=== PATIENT | female | born 1965 | race Caucasian/White ===

== ENCOUNTER 2024-09-04 08:07 | Day surgery (SDC) | payer OTHER ==
[~2024-09-04 08:07] MED LIST: LIDOCAINE 1% (10MG/ML) FOR IV START INTRADERMA PRN
[2024-09-04 08:32] VITALS: RESP 16; TEMP 97.1
[2024-09-04] MEDS: IV FLUID CONTINUATION 1,000 ML IV ONE (08:39)
[2024-09-04] MEDS: LACTATED RINGERS 1,000 ML IV SCH (08:40)
[2024-09-04] MEDS ORDERED: LIDOCAINE 1% INJ 10MG/ML (20 ML MDV) ONE (09:13)
[2024-09-04] MEDS ORDERED: PROPOFOL 10 MG/ML 20 ML VIAL IV ONE (09:13)
--- NOTE | 2024-09-04 09:28 | P.PCN ---
Date of Procedure: 09/04/24 Procedure(s) Performed: BRIEF HISTORY: Patient is a 50-year-old, pleasant, white female scheduled for an upper endoscopy as a part evaluation of longstanding history of GERD.. PROCEDURE PERFORMED: Esophagogastroduodenoscopy biopsy and dilation. PREOPERATIVE DIAGNOSIS: Longstanding history of GERD. IV sedation per anesthesia. PROCEDURE: After informed consent was obtained, the patient was brought into the endoscopy unit. IV sedation was administered by Anesthesia under continuous monitoring. Initially the Olympus GIF-140 video endoscope was inserted into the mouth. Esophagus intubated without any difficulty. It was gradually advanced into the stomach and duodenum and carefully examined. The bulb and the second part of the duodenum appeared normal. The scope at this time was withdrawn to the stomach, adequately insufflated with air, and upon careful examination, mucosa of the antrum, mild gastritis and biopsies were done from this area. Mucosa of the body, cardia and the fundus appeared normal. Moderate to large size hiatal hernia noted. The scope was then withdrawn into the esophagus. The GE junction was located at 32 cm from the incisors. Was a distal esophageal stricture identified and this was dilated using 12 to 15 mm TTS balloon in a sequential fashion for 60 seconds. There were erosions noted in the distal esophagus and multiple superficial mucosal rings in the mid esophagus biopsies were done from this area to rule out eosinophilic esophagitis. The rest of the esophagus appeared normal. The patient tolerated the procedure well. IMPRESSION: 1. Distal esophageal stricture status post balloon dilation using 12-15 mm TTS balloon. 2. Moderate to large size hiatal hernia. 3. Mild antral gastritis 4. Erosions of the distal esophagus and multiple superficial mucosal rings in the mid esophagus status post multiple biopsies rule out eosinophilic esophagitis RECOMMENDATIONS: The findings of this examination were discussed with the patient as well as her family. She was advised to remain on clear liquids for 2 hours. Start on omeprazole 20 mg daily and follow antireflux measures. Follow- up in the office in 3 months..
[2024-09-04 09:54] VITALS: BP 115/68; PULSE 83
== END 2024-09-04 10:23 | disposition home or self-care (01) ==
LOC: ORWHC2ENDO 08:07
PROVIDERS: ATTEND Internal Medicine Gastroenterology
DX: K29.50 Unspecified chronic gastritis without bleeding (principal); K21.00 Gastro-esophageal reflux disease with esophagitis, without bleeding; K44.9 Diaphragmatic hernia without obstruction or gangrene; E78.5 Hyperlipidemia, unspecified; J45.909 Unspecified asthma, uncomplicated; F32.A Depression, unspecified; F41.9 Anxiety disorder, unspecified; E11.9 Type 2 diabetes mellitus without complications; N28.9 Disorder of kidney and ureter, unspecified
CPT/HCPCS: 88305; 43239; 43249; J2003; J2704; C1726